=== PATIENT | female | born 1965 | race Caucasian/White ===

== ENCOUNTER → 2019-08-21 16:10 | Outpatient (CLI) | payer SELFPAY ==
--- NOTE | 2019-08-21 16:15 | MRI_ITS ---
STUDY: MRI LUMBAR SPINE WITHOUT CONTRAST REASON FOR EXAM: Female, 54 years old. Lumbar sprain. TECHNIQUE: Standardized fat and water weighted pulse sequences were obtained in the sagittal and axial planes. COMPARISON: None FINDINGS: lumbar spine is intact and aligned. Marrow, paraspinous soft tissues are unremarkable. There is right L4-L5 facet degeneration. BMI is elevated. Conus medullaris terminates at the appropriate level with unremarkable cauda equina. Spinal canal is patent. Foramina and lateral recesses are patent. MRI/Spine Lumbar (Routine) IMPRESSION: 1. Unremarkable lumbar spine. 2. Widely patent canal, no neural compression. Electronically Signed: Trent Durant, at 17:59 EST Tel , Service support ,
== END ==
DX: S33.5XXA Sprain of ligaments of lumbar spine, initial encounter (principal); M99.03 Segmental and somatic dysfunction of lumbar region
CPT/HCPCS: 72148